=== PATIENT | male | born 2000 | race Two or more races ===

== ENCOUNTER 2024-07-15 11:40 | Emergency (ER) | payer MEDICAID, SELFPAY ==
[2024-07-15 11:41] VITALS: BMI 32.5
[2024-07-15 12:04] VITALS: BP 138/87; PULSE 130; RESP 19; TEMP 39.8; O2SAT 98
--- NOTE | 2024-07-15 12:17 | PD.EDDENTL ---
ED Dental RME/HPI General Chief complaint: Dental/Oral/Throat Stated complaint: SORE THROAT Time Seen by Provider: 07/15/24 11:59 Arrival date/time: 07/15/24 11:40 This is a 24-year-old male that comes in with complaints of sore throat and fever that started 2 days ago. Patient denies any other symptoms. Patient states he previously did have a cough a couple weeks ago but no longer has a cough. Patient was given an inhaler at that time. Patient denies runny nose cough. Patient denies nausea, vomiting, diarrhea. Related Data Home Medications ?Medication ?Instructions ?Recorded ?Confirmed omeprazole 20 mg capsule,delayed 20 mg PO QDAY 09/03/18 09/14/18 release Previous Rx's ?Medication ?Instructions ?Recorded albuterol sulfate 90 mcg/actuation 2 puff inhalation QID PRN 05/09/24 aerosol inhaler shortness of breath or wheezing #8.5 grams azithromycin 250 mg tablet See Rx Instructions PO .COMPLEX #6 05/09/24 tabs ibuprofen 800 mg tablet 800 mg PO Q6H PRN pain #10 tabs 05/09/24 amoxicillin 875 mg-potassium 1 tab PO BID #14 tabs 07/15/24 clavulanate 125 mg tablet ibuprofen 800 mg tablet 800 mg PO Q6H PRN pain #14 tabs 07/15/24 Allergies Allergy/AdvReac Type Severity Reaction Status Date / Time No Known Allergies Allergy Verified 07/15/24 11:43 Review of Systems Review of Systems Systems Reviewed: All systems reviewed, normal except as documented Past Medical History Past Medical History Comments PMH COMMENT: see hpi ED Exam General General appearance: Present alert and in no apparent distress Head Head exam: Present atraumatic Eye Eye exam: Present normal appearance, PERRL and EOMI ENT ENT exam: Present mucous membranes moist and other (swollen tonsils, erythemic with exudate ) Neck Neck exam: Present normal inspection, full ROM and trachea midline Chest Chest inspection: Present normal inspection and symmetric chest wall rise Respiratory Respiratory exam: Present normal lung sounds bilaterally Cardiovascular Cardiovascular exam: Present regular rate, normal rhythm and normal heart sounds Abdominal Exam Abdominal exam: Present soft and normal bowel sounds Extremities Exam Extremities exam: Present normal inspection and full ROM Back Exam Back exam: Present normal inspection and full ROM Neurological Exam Neurological exam: Present alert, oriented X3 and CN II-XII intact Psychiatric Psychiatric exam: Present normal affect and normal mood Skin Skin exam: Present warm, dry, intact and normal color Course Quality Measures none Orders Category Date Time Status Acetaminophen Tab [Tylenol ES Tab] Med 07/15/24 12:16 Discontinued 1,000 mg PO X1 ONE Ibuprofen Tab [Motrin Tab] Med 07/15/24 12:16 Discontinued 800 mg PO X1 ONE cefTRIAXone [Rocephin] 1,000 mg Med 07/15/24 12:16 Discontinued Lidocaine 1% 20 ml [Xylocaine 1% 20 ML] 2.1 ml IM X1 Vital Signs Vital signs: Vital Signs Temperature 103.7 F H 07/15/24 12:04 Pulse Rate 130 H 07/15/24 12:04 Respiratory Rate 19 07/15/24 12:04 Blood Pressure 138/87 H 07/15/24 12:04 Pulse Oximetry (%) 98 07/15/24 12:04 Oxygen Delivery Method Room Air 07/15/24 12:04 Dental / Oral MDM Narrative MDM Narrative:: Patient treated with rocephin, tylenol and ibuprofen. Patient told to come back to ED if symptoms change or worsen. Patient data External records reviewed:: [facility] previous records Clinical information provided by:: patient Social determinants that could affect healthcare access:: none Patient has the following chronic illnesses:: none How is presenting disease/condition affected by chronic disease/condition?: uneffected by Evaluation data The following diagnostics were reviewed and interpreted by me:: other (specify) (none ) Lab and/or radiology exams considered but not ordered:: quick strep Interpretation Summary: none Medications / Prescriptions Medications or Prescriptions considered but not ordered:: none Medication administrations:: Medication Administration History Discontinued Medications Acetaminophen (Acetaminophen 500 Mg Tablet) 1,000 mg PO X1 ONE Stop: 07/15/24 12:17 Last Admin: 07/15/24 12:42 Dose: 1,000 mg Documented By: RORO Ceftriaxone Sodium 1,000 mg/ (Lidocaine HCl 2.1 ml) 0 mg IM X1 ONE Stop: 07/15/24 12:17 Last Admin: 07/15/24 12:43 Dose: 1,000 mg Documented By: RORO Ibuprofen (Ibuprofen Tab 400 Mg Tablet) 800 mg PO X1 ONE Stop: 07/15/24 12:17 Last Admin: 07/15/24 12:42 Dose: 800 mg Documented By: MP see [facility] Consultations Consultation(s) initiated? (list below): No Diagnosis Dental Differential Diagnosis: gingival abscess, dental abscess and other (strep throat, influenza ) Most likely diagnosis given after review of the tests above:: strep throat Admission Indicated Admission indicated?: not indicated Admission Request Was there a request for admission?: No Disposition Plan Disposition Plan: Discharge Discharge Attestation Discharge Attestation: The patient and all family members were given an opportunity to ask questions and understood the discharge instructions. Discharge instructions specifically effects, indications for sooner follow up or return to the emergency department, and the expected course of current diagnosis. Patient condition: Stable Discharge Plan Plan Patient Disposition: HOME (Self Care) Patient condition on transfer: Stable Prescriptions/Referrals Prescriptions/Med Rec: New amoxicillin-pot clavulanate 875-125 mg tablet 1 tab PO BID Qty: 14 0RF ibuprofen 800 mg tablet 800 mg PO Q6H PRN (Reason: pain) Qty: 14 0RF No Action omeprazole 20 mg Capsule,Delayed Release(Dr/Ec) 20 mg PO QDAY azithromycin 250 mg tablet See Rx Instructions .ROUTE .COMPLEX Qty: 6 0RF Rx Instructions: For 250 mg dose pack: take 500 mg today (day 1), then 250 mg for 4 days (days 2-5) albuterol sulfate 90 mcg/actuation HFA aerosol inhaler 2 puff inhalation QID PRN (Reason: shortness of breath or wheezing) Qty: 8.5 0RF ibuprofen 800 mg tablet 800 mg PO Q6H PRN (Reason: pain) Qty: 10 0RF Problem List Clinical Impression: Acute bacterial tonsillitis Patient/Caregiver Discharge Instructions Discharge Activity: activity as tolerated Education Materials: Tonsillitis in Adults Additional Instructions: Follow up with primary provider in 1-2 days. Come back to ED if symptoms change or worsen okay okay yeah. You may begin getting off the right shoulder no Print Language: Portuguese Stand Alone Forms: Lisbeth Award Info., Patient Portal Info Letter PA/CODING VALIDATOR Supervising Physician PA/CODING VALIDATOR Supervising Physician: [email or web address]
[2024-07-15 12:42] VITALS: TEMP 39.8
[2024-07-15] MEDS: IBUPROFEN TAB 400 MG TABLET 800 MG PO (12:42)
[2024-07-15] MEDS: ACETAMINOPHEN 500 MG TABLET 1000 MG PO (12:42)
[2024-07-15] MEDS: cefTRIAXone 1,000 MG, LIDOCAINE 1% 20 ML 2.1 ML IM (12:43)
[2024-07-15 14:03] VITALS: BP 138/88; PULSE 105; RESP 20; TEMP 37.9; O2SAT 98
== END 2024-07-15 14:24 | disposition home or self-care (01) ==
LOC: SERX 13:34
PROVIDERS: Emergency Provider Emergency Medicine; PCP Family Medicine
DX: J03.80 Acute tonsillitis due to other specified organisms (principal); B96.89 Other specified bacterial agents as the cause of diseases classified elsewhere
CPT/HCPCS: 96372; 99283; J0696; J3490; A9270